=== PATIENT | male | born 1995 | race Hispanic/Latino ===

== ENCOUNTER 2019-08-24 00:32 | Day surgery (SDC) | payer OTHER ==
[~2019-08-24] VITALS: Ht 167.6 cm; Wt 93.0 kg
[2019-08-24 01:12] LABS: BASO # 0.1 10^3/uL (0.0-0.2); BASO % 0.3 % (0.0-1.0); EOS # 0.1 10^3/uL (0.0-0.5); EOS % 0.8 % (0.0-3.0); HEMATOCRIT 46.3 % (42.0-52.0); HEMOGLOBIN 15.6 g/dl (13.5-17.5); LYMPH # 1.3 10^3/uL (1.5-5.0); LYMPH % 7.7 % (24.0-44.0); MEAN CORPUSCULAR HEMOGLOBIN 30.9 pg (27.0-33.0); MEAN CORPUSCULAR HGB CONC 33.7 g/dl (32.0-36.5); MEAN CORPUSCULAR VOLUME 91.7 fl (80.0-96.0); MONO % 6.2 % (0.0-5.0); NEUTROPHILS # 13.7 10^3/uL (1.5-8.5); NEUTROPHILS % 84.6 % (36.0-66.0); PLATELET COUNT, AUTOMATED 227 10^3/uL (150-450); RED BLOOD COUNT 5.05 10^6/uL (4.30-6.10); WHITE BLOOD COUNT 16.2 10^3/uL (4.0-10.0)
[2019-08-24] MEDS ORDERED: KETOROLAC 30 MG/ML 1ML VIAL IV ONE (01:30)
[2019-08-24] MEDS ORDERED: NS 1,000 ML IV ONE (01:30)
[2019-08-24 01:43] LABS: BILIRUBIN,DIRECT 0.1 MG/DL (0.0-0.2); BILIRUBIN,TOTAL 0.4 MG/DL (0.2-1.0); TOTAL PROTEIN 7.3 GM/DL (6.4-8.2)
[2019-08-24] MEDS ORDERED: ISOVUE-370 76% 100ML VIAL As Ordered ONE (02:08)
--- NOTE | 2019-08-24 02:36 | REPVR ---
PROCEDURE INFORMATION: Exam: CT Abdomen And Pelvis With Contrast Exam date and time: 08/24/2019 2:21 AM Age: 23 years old Clinical indication: Abdominal pain; Additional info: Lower abd pain TECHNIQUE: Imaging protocol: Computed tomography of the abdomen and pelvis with intravenous contrast. Radiation optimization: All CT scans at this facility use at least one of these dose optimization techniques: automated exposure control; mA and/or kV adjustment per patient size (includes targeted exams where dose is matched to clinical indication); or iterative reconstruction. Contrast material: ISO 370; Contrast volume: 100 ml; Contrast route: INTRAVENOUS (IV); COMPARISON: No relevant prior studies available. FINDINGS: Liver: Normal. No mass. Gallbladder and bile ducts: Normal. No calcified stones. No ductal dilation. Pancreas: Normal. No ductal dilation. Spleen: Normal. No splenomegaly. Adrenals: Normal. No mass. Kidneys and ureters: Normal. No hydronephrosis. Stomach and bowel: Unremarkable. No obstruction. No mucosal thickening. Appendix: Appendix is dilated to 10 mm, with mucosal enhancement and peripheral stranding. Intraperitoneal space: No extraluminal air or fluid collection. Vasculature: Unremarkable. No abdominal aortic aneurysm. Lymph nodes: Unremarkable. No enlarged lymph nodes. Bladder: Unremarkable as visualized. Reproductive: Unremarkable as visualized. Bones/joints: Incidental bone island in the left ilium. Soft tissues: Unremarkable. IMPRESSION: Uncomplicated acute appendicitis. Electronically signed by: Uri Ibarra On 08/24/2019 02:35:59 AM
[2019-08-24] MEDS ORDERED: PIPERACILLIN/TAZOBACTAM SOD 3.375 GM in D5W MINI-BAG PLUS 50 ML IV ONE (03:30)
[2019-08-24] MEDS ORDERED: propofoL 200 MG/20 ML VIAL As Ordered ONE ×2 (06:49→07:36)
[2019-08-24] MEDS ORDERED: LIDOCAINE 2% 100MG/5ML SDV (FOR ANES.) As Ordered ONE ×2 (06:49→07:36)
[2019-08-24] MEDS ORDERED: ROCURONIUM BROMIDE 50 MG/5 ML VIAL As Ordered ONE (06:49)
[2019-08-24] MEDS ORDERED: dexameTHASONE 4 MG/ML 1ML VIAL (J1100 PER 1MG) As Ordered ONE (06:50)
[2019-08-24] MEDS ORDERED: ONDANSETRON 4MG/2ML VIAL As Ordered ONE (06:50)
[2019-08-24] MEDS ORDERED: MIDAZOLAM INJ 2MG/2ML VIAL (J2250 PER 1MG) As Ordered ONE (06:50)
[2019-08-24] MEDS ORDERED: fentaNYL 100 MCG/2 ML INJECTION (J3010) As Ordered ONE (06:50)
[2019-08-24] MEDS ORDERED: BUPIVACAINE/EPIN 0.25% 30 ML VIAL As Ordered ONE (06:58)
[2019-08-24] MEDS ORDERED: HYDROmorphone HCL 2 MG/ML 1ML VIAL (J1170) As Ordered ONE (07:34)
[2019-08-24] MEDS ORDERED: KETOROLAC 60MG 2ML VIAL As Ordered ONE (07:42)
[2019-08-24] MEDS ORDERED: SUGAMMADEX SODIUM 500 MG/5 ML VIAL (BRIDION) As Ordered ONE (07:42)
[2019-08-24] MEDS ORDERED: ONDANSETRON 4MG/2ML VIAL IV PRN (08:45)
[2019-08-24] MEDS ORDERED: HYDROMORPHONE HCL 0.5 MG/ 0.5 ML SYRINGE (J1170 PER 1) IV PRN (08:45)
[2019-08-24] MEDS ORDERED: LR 1,000 ML IV SCH (08:45)
[2019-08-24] MEDS ORDERED: oxyCODONE 5MG TAB PO PRN (08:45)
[2019-08-24] MEDS ORDERED: fentaNYL 100 MCG/2 ML INJECTION (J3010) IV PRN (08:45)
[2019-08-24] MEDS ORDERED: ACETAMINOPHEN 500 MG TAB As Ordered ONE (08:53)
[2019-08-24] MEDS ORDERED: ACETAMINOPHEN 500 MG TAB PO ONE (09:00)
[2019-08-24] MEDS ORDERED: MORPHINE 2 MG/ML 1ML VIAL (J2270) IV PRN (09:15)
[2019-08-24] MEDS ORDERED: CEPACOL LOZENGE PO PRN ×2 (09:15→09:30)
[2019-08-24] MEDS ORDERED: NORCO, ANEXSIA 5/325MG TABLET (HYDROcodone/ACETAMINOPHEN) PO PRN (09:15)
[2019-08-24 09:32] VITALS: BP 124/77
[2019-08-24] MEDS ORDERED: KETOROLAC 30 MG/ML 1ML VIAL IV SCH (10:00)
[2019-08-24 10:02] VITALS: BP 125/85
[2019-08-24 10:32] VITALS: BP 130/80
[2019-08-24] MEDS: PIPERACILLIN/TAZOBACTAM SOD 3.375 GM in D5W MINI-BAG PLUS 50 ML IV SCH ×3 (10:43→23:00)
[2019-08-24] MEDS: NS 1,000 ML IV SCH ×2 (10:44→17:04)
[2019-08-24 11:32] VITALS: BP 130/78
[2019-08-24 14:00] VITALS: BP 110/57
[2019-08-24] MEDS: KETOROLAC 30 MG/ML 1ML VIAL IV SCH ×2 (14:33→20:00)
[2019-08-24 22:00] VITALS: BP 114/59
[2019-08-25] MEDS: KETOROLAC 30 MG/ML 1ML VIAL IV SCH ×2 (01:57→08:00)
[2019-08-25 02:00] VITALS: BP 119/67
[2019-08-25] MEDS: PIPERACILLIN/TAZOBACTAM SOD 3.375 GM in D5W MINI-BAG PLUS 50 ML IV SCH ×2 (03:42→10:07)
[2019-08-25 06:00] VITALS: BP 121/67
[2019-08-25 10:00] VITALS: BP 120/66
--- NOTE | 2019-09-01 11:37 | RO ---
DATE OF PROCEDURE: PREOPERATIVE DIAGNOSIS: Acute appendicitis. POSTOPERATIVE DIAGNOSIS: Acute appendicitis. PROCEDURE: Laparoscopic appendectomy. SURGEON: Deric Hart MD ASSISTANT TENNIS COACH: ANESTHESIA: General endotracheal anesthesia. ESTIMATED BLOOD LOSS (EBL): Minimal. FLUIDS: Crystalloid. BRIEF PROCEDURE SUMMARY: The patient was brought to the operating room and was given general anesthesia. After adequate anesthesia and preoperative antibiotics were given, the patient was prepped and draped in the usual sterile fashion. Next, a supraumbilical incision was made with skin knife. Blunt dissection was carried down to fascia. Veress needle was inserted and insufflated to 15 mm of pressure. A dilating 12 mm trocar was placed and under direct visualization a suprapubic and left lower quadrant 5 mm trocars were placed. Next, the appendix was visualized and was mobilized off surrounding structures. Mesentery of the appendix was taken with Harmonic scalpel all the way to the base of the appendix/cecal wall. Once this was cleared of surrounding tissue, a Endo BLANCA was placed across the base of the appendix and placed in an Endo Catch bag. This was brought out through the umbilicus. The right lower quadrant was copiously irrigated until clear and all trocars were removed under direct visualization. #0 Vicryl was used to close the fascia at the umbilicus and all incisions were closed with #4-0 Vicryl. Steri-Strips and dry sterile dressing was applied. The patient was awakened from anesthesia, extubated, brought to recovery room awake, alert, hemodynamically stable. Sponge and needle counts correct times two.
== END 2019-08-25 13:51 | disposition home or self-care (01) ==
LOC: M ED 00:32 → M SDC 05:25 → M MSPAV 09:30 → M SDC 08-25 13:51
PROVIDERS: ATTEND Surgery
DX: K35.890 Other acute appendicitis without perforation or gangrene (principal)
CPT/HCPCS: 44970; 74177; 80047; 80076; 81001; 83690; 85025; 87040; 88304; 96361; 96365; 96366; 96375; 99285; J1100; J1170; J1885; J2250; J2405; J2543; J3010; Q9967; U0002

== ENCOUNTER 2019-09-15 14:41 | Emergency (ER) | payer OTHER ==
[~2019-09-15] VITALS: Ht 167.6 cm; Wt 83.5 kg
[2019-09-15 14:41] VITALS: BP 120/77
[2019-09-15] MEDS ORDERED: BENADRYL 50 MG (14:47)
[2019-09-15] MEDS ORDERED: diphenhydrAMINE 25MG CAP PO ONE (15:30)
[2019-09-15] MEDS ORDERED: FAMOTIDINE 20 MG TAB PO ONE (15:30)
[2019-09-15] MEDS ORDERED: predniSONE 20 MG TAB PO ONE (15:30)
[2019-09-15] MEDS ORDERED: PEPC1TAB5 PO (15:34)
[2019-09-15] MEDS ORDERED: PRED20TA PO (15:34)
[2019-09-15] MEDS ORDERED: BENA25CA4 PO (15:34)
== END 2019-09-15 15:47 | disposition home or self-care (01) ==
LOC: M ED 14:41
DX: T78.1XXA Other adverse food reactions, not elsewhere classified, initial encounter (principal); L50.0 Allergic urticaria

== ENCOUNTER → 2019-10-19 | Outpatient (CLI) | payer OTHER ==
[~2019-10-19] MED LIST: BENA25CA4 PO; BENADRYL 50 MG; GASTROGRAFIN SOLUTION 30ML (Q9963) As Ordered ONE; ISOVUE-370 76% 100ML VIAL As Ordered ONE; PEPC1TAB5 PO; PRED20TA PO
--- NOTE | 2019-11-25 07:42 | REP ---
CONTRAST ENHANCED CT OF THE ABDOMEN AND PELVIS CLINICAL: Periumbilical pain with history of prior laparoscopic appendectomy. TECHNIQUE: Axial contrast enhanced images from the lung bases to the pubic symphysis using oral (per protocol) and 100 mL Isovue-370 intravenous contrast material along with coronal and sagittal reformations. Precontrast images of the abdomen were obtained as well. COMPARISON: 08/24/2019. FINDINGS: The lung bases are clear. Visualized heart and pericardium normal. Liver, spleen, pancreas, gallbladder, bilateral adrenal glands, and kidneys are normal. The enteric system is without obstruction or acute inflammatory process. Pelvis demonstrates relatively normal bladder and age appropriate prostate/seminal vesicles. No ascites. No free air. No adenopathy. Abdominal aorta and vasculature without aneurysm or dissection. The musculoskeletal structures are intact. The surrounding subcutaneous tissues and the periumbilical region are essentially normal. Small amount of granulation tissue at the level of the umbilicus is consistent with prior laparoscopic procedure and there is no associated hernia or acute findings. The subcutaneous tissue underlying the BB marker overlying the right anterior rectus muscle appears relatively normal and unchanged as compared with 08/24/2019. IMPRESSION: No acute abdominopelvic pathology appreciated. MTDD
== END ==
LOC: M RAD 09:22
PROVIDERS: ATTEND Surgery
DX: R10.33 Periumbilical pain (principal)
CPT/HCPCS: 74178; Q9963; Q9967